=== PATIENT | male | born 2000 | race African-American/Black ===

== ENCOUNTER 2024-07-15 20:42 | Emergency (ER) | payer OTHER ==
[2024-07-15 20:53] VITALS: BP 113/55; PULSE 71; RESP 18; TEMP 98; BMI 22.8
[2024-07-15] MEDS ORDERED: ACETAMINOPHEN 500 MG TABLET (FP) ONE (21:36)
[2024-07-15] MEDS: ACETAMINOPHEN 500 MG TABLET (FP) PO ONE (21:50)
== END 2024-07-15 22:47 | disposition home or self-care (01) ==
LOC: JER 20:42
DX: M94.0 Chondrocostal junction syndrome [Tietze] (principal)
CPT/HCPCS: 0241U-QW; 71046-TC-FY; 93005; 93010; 99285-25